=== PATIENT | female | born 1995 | race Caucasian/White ===

== ENCOUNTER 2018-09-17 22:53 | Emergency (ER) | payer OTHER ==
--- NOTE | 2018-09-18 00:22 | ER Document Report ---
ED General - General Chief Complaint: Abdominal Pain Stated Complaint: ABDOMINAL PAIN Time Seen by Provider: 09/17/18 23:28 Notes: Patient is an otherwise healthy 22-year-old female presents to the emergency department for chief complaints of lower abdominal pain and cramping. Patient states she started her menstrual cycle today states she does have a history of ovarian cyst. States she got increased pain in her lower abdominal area devel oped some nausea and felt as though she is going to pass out. Patient states she called 911 and presents to the emergency room. Patient states she did take 800 mg of Motrin prior to calling 911. Patient's denying any fevers, dysuria, vaginal discharge prior to her menses starting. Upon my examination patient currently has no complaints. Patient states she feels as though the Motrin has not helped her lower abdominal pain. She continues to deny nausea. Patient states she wishes to be discharged and does not wish to "waste any of our time." Past medical history: Ovarian cyst Medications: None Allergies: None Last menstrual period, started today TRAVEL OUTSIDE OF THE [place] IN LAST 30 DAYS: No - Related Data Allergies/Adverse Reactions: No Known Allergies Allergy (Verified 09/17/18 23:29) Past Medical History - General Information source: Patient - Social History Smoking Status: Never Smoker Frequency of alcohol use: None Drug Abuse: None Family History: Reviewed & Not Pertinent Patient has suicidal ideation: No Patient has homicidal ideation: No Renal/ Medical History: Denies: Hx Peritoneal Dialysis Past Surgical History: Reports: Hx Oral Surgery Review of Systems - Review of Systems Constitutional: No symptoms reported EENT: No symptoms reported Cardiovascular: No symptoms reported Respiratory: No symptoms reported Gastrointestinal: See HPI Genitourinary: See HPI Female Genitourinary: See HPI Musculoskeletal: No symptoms reported Skin: No symptoms reported Hematologic/Lymphatic: No symptoms reported Physical Exam - Vital signs Vitals: Temp Pulse Resp BP Pulse Ox 97.5 F 61 16 146/87 H 100 09/17/18 22:59 09/17/18 22:59 09/17/18 22:59 09/17/18 22:59 09/17/18 22:59 - Notes Notes: GENERAL: Alert, interacts well. No acute distress. HEAD: Normocephalic, atraumatic. EYES: Pupils equal, round, and reactive to light. Extraocular movements intact. ENT: Oral mucosa moist, tongue midline. NECK: Full range of motion. Supple. Trachea midline. LUNGS: Clear to auscultation bilaterally, no wheezes, rales, or rhonchi. No respiratory distress. HEART: Regular rate and rhythm. No murmur ABDOMEN: Soft, non-tender. Non-distended. Bowel sounds present in all 4 quadrants. No McBurney's point tenderness, no Jones sign noted, no bilateral pelvic pain noted EXTREMITIES: Moves all 4 extremities spontaneously. No edema, normal radial and dorsalis pedis pulses bilaterally. No cyanosis. BACK: no cervical, thoracic, lumbar midline tenderness. No saddle anesthesia, normal distal neurovascular exam. No CVA tenderness noted bilaterally NEUROLOGICAL: Alert and oriented x3. Normal speech. cranial nerves II through XII grossly intact PSYCH: Normal affect, normal mood. SKIN: Warm, dry, normal turgor. No rashes or lesions noted. Course - Re-evaluation Re-evalutation: 09/18/18 00:20 Upon my examination patient is completely without complaint. Discussed with patient labs that have been ordered patient wishes to refuse at this time. States she feels bad for "wasting everybody's time." States she no longer has any abdominal pain and feels as though the Motrin has helped her. Patient wishes for discharge at this time. Close return precautions discussed. Patient's vitals continue to be stable for discharge. - Vital Signs Vital signs: Temp Pulse Resp BP Pulse Ox 97.5 F 61 16 146/87 H 100 09/17/18 22:59 09/17/18 22:59 09/17/18 22:59 09/17/18 22:59 09/17/18 22:59 - Laboratory Result Diagrams: 09/17/18 23:40 09/17/18 23:40 Discharge - Discharge Clinical Impression: Abdominal pain Qualifiers: Abdominal location: unspecified location Qualified Code(s): R10.9 - Unspecified abdominal pain Condition: Stable Disposition: HOME, SELF-CARE Instructions: Abdominal Pain ([facility]), Pelvic Pain ([facility]) Additional Instructions: As we discussed you have been seen in the emergency department for your genera lized lower abdominal pain. We have not done any tests as per your request. I do understand that you no longer have any discomfort although I still think you should follow-up with your primary care provider in the next 24-48 hours. You should also return to the emergency room should you have any other concerning symptoms. Forms: Return to Work
[2018-09-18 00:26] VITALS: BP 112/69
== END 2018-09-18 00:27 | disposition home or self-care (01) ==
LOC: ER 22:53
DX: R10.30 Lower abdominal pain, unspecified (principal); R11.0 Nausea; Z87.42 Personal history of other diseases of the female genital tract
CPT/HCPCS: 99284